=== PATIENT | male | born 1980 | race Caucasian/White ===

== ENCOUNTER 2023-05-29 12:07 | Emergency (ER) | payer SELFPAY ==
[2023-05-29 12:09] VITALS: BP 203/139; PULSE 120; RESP 18; TEMP 36.2; O2SAT 99; BMI 35.6
--- NOTE | 2023-05-29 13:10 | EX.ED.DYSGE1 ---
HPI <BANDAR Collins - Last Filed: 05/29/23 15:58> History of Present Illness Chief Complaint: Nosebleed Narrative Narrative: Patient is a 42-year-old male with history of hemophilia, hypertension who presents to the emergency department with a nosebleed that started this morning. Patient states he was outside working yesterday and might have been dry. He denies any injury to his nose. The most of the blood was into the right nares. Patient does has hemophilia, and he was concerned, he is here for evaluation. Patient did try TXA, factor VIII. Patient could not get his right side of his nose to stop bleeding. PFSH <BANDAR Collins - Last Filed: 05/29/23 15:58> [facility] Home Medications clindamycin HCl 300 mg capsule 300 mg PO TID #15 caps 05/29/23 [Rx Last Taken Unknown] Allergy/AdvReac Type Severity Reaction Status Date / Time Penicillins Allergy Anaphylaxis Verified 05/29/23 16:06 Social History Smoking Status: Never smoker ROS <BANDAR Collins - Last Filed: 05/29/23 15:58> ROS ED ROS Narrative Constitutional: Negative for fever, chills, weight loss, weakness Eyes: Negative for vision loss, vision change, double vision ENT: Negative for any sore throat, ear pain, congestion. Positive for epistaxis to the right nares Cardiovascular: Negative for any chest pain, tightness, palpitations Respiratory: Negative for any cough, sputum production, hemoptysis, dyspnea, dyspnea on exertion, orthopnea Gastrointestinal: Negative for any abdominal pain, nausea, vomiting, diarrhea, constipation, blood in stool, blood in vomit : Negative for any urinary frequency, dysuria, retention, blood in urine Muscle skeletal: Negative for any muscle joint pain, stiffness, myalgias, arthralgias, neck pain, back pain Neurological: Negative for any headache, syncope, numbness or tingling, dizziness Skin: Negative for any rashes, lumps, itching, abrasions, lacerations Psychiatric: Negative for any depression, anxiety, stress, suicidal ideation, homicidal ideation Hematologic: Negative for any easy bruising, excessive bruising, easy bleeding Allergies: Negative for any eczema, hives, rash EXAM <BANDAR Collins - Last Filed: 05/29/23 15:58> Physical Exam Narrative Exam Narrative: Vital signs reviewed. On initial examination, patient did have tampons to bilateral nares. The right one was saturated with blood. Patient was hypertensive on initial evaluation. HEET: Head normocephalic atraumatic, TMs clear bilaterally. Posterior pharynx is clear, moist mucous membranes. Nares clear bilaterally. I did have the patient blow the right nose, is difficult to see where the bleeding is occurred secondary to the amount of blood. Patient does have clots coming down his mouth as well as the left and right nares. Neck: Supple with no lymphadenopathy or tenderness. No signs of meningismus, negative jolt sign. Cardiac: Tachycardic rate no murmurs gallops or rubs, equal peripheral pulses bilaterally. Respiratory: Lungs clear to auscultation bilaterally. No chest tenderness. Abdomen: Soft, nontender, nondistended. No abdominal bruit or pulsatile masses. No hepatosplenomegaly Extremities: No peripheral edema, no signs of gross trauma or deformity. Active full range of motion of all extremities. Neuro: Cranial nerves II through XII intact, no focal neurological deficits. Skin: Clean dry and intact with no rash, purpura, petechiae, vesicles or pustules. Backs/flank: No CVA tenderness, no midline spinal tenderness, no deformity. Psych: Normal mood and affect. No SI, HI or acute psychosis. Const Vital Signs: 05/29/23 12:09 05/29/23 15:42 Temperature 97.1 F L Temperature Source Temporal Pulse Rate 120 H 101 H Respiratory Rate 18 17 Blood Pressure 203/139 H 180/110 H Blood Pressure Mean 160 133 Pulse Ox 99 96 Oxygen Delivery Method Room Air Room Air Positive well nourished and well developed General Appearance ED: well developed <Dr. Michele Alfredo DO - Last Filed: 05/29/23 16:16> Physical Exam Const Vital Signs: 05/29/23 12:09 05/29/23 15:42 Temperature 97.1 F L Temperature Source Temporal Pulse Rate 120 H 101 H Respiratory Rate 18 17 Blood Pressure 203/139 H 180/110 H Blood Pressure Mean 160 133 Pulse Ox 99 96 Oxygen Delivery Method Room Air Room Air MDM <PREETHI CollinsC - Last Filed: 05/29/23 15:58> MDM Lab Data Labs: Laboratory Results - last 24 hr 05/29/23 05/29/23 13:15 14:50 WBC 9.6 RBC 5.10 Hgb 13.6 Hct 41.5 MCV 81.4 MCH 26.7 L MCHC 32.8 RDW Std Deviation 43.3 RDW Coeff of Terra 14.6 Plt Count 380 MPV 10.0 Immature Gran % (Auto) 0.200 Neut % (Auto) 84.1 H Lymph % (Auto) 10.2 L Darke % (Auto) 5.1 Eos % (Auto) 0.1 Baso % (Auto) 0.3 Absolute Neuts (auto) 8.1 H Absolute Lymphs (auto) 0.98 Nucleated RBC % 0 PT 13.1 INR 1.0 Sodium 134 L Potassium 3.7 Chloride 100 Carbon Dioxide 30.0 Anion Gap 4 L BUN 15 Creatinine 1.09 Estim Creat Clear Calc 100.79 Est GFR (MDRD) Af Amer 95 Est GFR (MDRD) Non-Af 79 BUN/Creatinine Ratio 13.8 Glucose 118 H Calcium 8.8 Treatment and Re-Evaluation :: Patient appears anxious, patient does have epistaxis in the right nares. Secondary the patient's hemophilia, he is having difficulty stopping the bleeding. I had the patient blow his nose, I was trying to see where the bleeding was occurring however is difficult secondary to the amount of blood and clots. I then sprayed Afrin up the right nares. The Rhino Rocket was saturated in Afrin as well as water, was able to use a 7.5 Rhino Rocket, with 7 cc of air. This did stop the bleeding, patient did have a lot of clots leaving his mouth. Patient be reevaluated. On reassessment the patient had no more oozing out of the right nares. Patient does complain of some pressure to his face over this is to be expected site of the Rhino Rocket. Patient replaced on clindamycin. He will follow-up with ear nose and throat, I did do a PT/INR within normal limits. Patient's laboratory values were unremarkable with hemoglobin 13.5. Patient's blood pressure was elevated, I did speak with him about this, he states it secondary to being in the hospital. He is going to talk to his PCP about this. At this time, patient will be placed on clindamycin for 3 days, he will follow-up with ear nose and throat in the next 3 days. I did give him a syringe to decrease 1 cc tomorrow if he is still having pain. All questions were answered, patient stable for discharge <Dr. Michele Alfredo, DO - Last Filed: 05/29/23 16:16> [facility] Narrative Medical decision making narrative: I have personally performed a face to face assessment of the patient and have reviewed the AISHWARYA Note. I performed a substantive portion of the visit including all aspects of the following. My franco findings include: History: Patient presents with epistaxis that began today. Patient states it is mainly coming from his right nares. Patient has a history of hemophilia. Patient does not take any blood thinners as a result of that. Patient denies any trauma or injury. Patient states his bleeding began rather suddenly. Patient states that his bleeding is going down his throat. Exam: Vital signs are stable except for an elevated blood pressure of 203/139. Patient is tachycardic at 120. Patient is afebrile. Patient is in no acute distress. Oral mucosa is pink and moist. Oropharynx shows some bloody postnasal drainage. There is bleeding from the right nares. There is no septal deviation or septal hematoma noted. Neck is supple. Trachea is midline. There is no JVD or lymphadenopathy. Heart was regular rate and rhythm. Lungs are clear and equal bilaterally. Cranial nerves II through XII are intact. There are no focal motor or sensory deficits noted. Medical Decision Making: Potential diagnosis includes anemia, coagulopathy, electrolyte abnormality, and epistaxis. CBC will be obtained to assess for leukocytosis and anemia. PT with INR will be obtained to assess for coagulopathy. Basic metabolic profile will be obtained to assess for electrolyte abnormality and renal function. CBC was reviewed and was within normal limits. PT with INR was reviewed and was within normal limits. Basic metabolic profile was reviewed and was within normal limits. Afrin nasal spray was applied to the right nares. A 7.5 cm rapid Rhino was placed in the right nares. Patient tolerated the procedure well. There is no further bleeding noted. Patient was instructed to follow-up with ENT in 2 to 3 days for removal of the packing. Patient was given a prescription for clindamycin. Patient was given his first dose here. Patient was instructed to force in any way. Patient and spouse understood and were agreeable with the plan. All questions were answered. Lab Data Attestation: I reviewed the patient's lab results. Labs: Laboratory Results - last 24 hr 05/29/23 05/29/23 13:15 14:50 WBC 9.6 RBC 5.10 Hgb 13.6 Hct 41.5 MCV 81.4 MCH 26.7 L MCHC 32.8 RDW Std Deviation 43.3 RDW Coeff of Terra 14.6 Plt Count 380 MPV 10.0 Immature Gran % (Auto) 0.200 Neut % (Auto) 84.1 H Lymph % (Auto) 10.2 L Darke % (Auto) 5.1 Eos % (Auto) 0.1 Baso % (Auto) 0.3 Absolute Neuts (auto) 8.1 H Absolute Lymphs (auto) 0.98 Nucleated RBC % 0 PT 13.1 INR 1.0 Sodium 134 L Potassium 3.7 Chloride 100 Carbon Dioxide 30.0 Anion Gap 4 L BUN 15 Creatinine 1.09 Estim Creat Clear Calc 100.79 Est GFR (MDRD) Af Amer 95 Est GFR (MDRD) Non-Af 79 BUN/Creatinine Ratio 13.8 Glucose 118 H Calcium 8.8 Discharge Plan Triage Chief Complaint: Nosebleed ED Midlevel Provider: Marco Ferguson ED Provider: Michele Alfredo Dx/Rx/DC Orders Clinical Impression: Epistaxis, Hemophilia Instructions: ED Epistaxis (Adult) Prescriptions: New clindamycin HCl 300 mg capsule 300 mg PO TID Qty: 15 0RF Primary Care Provider: Care Physician,No Primary Referrals: Yahir Jennings MD [Med Staff - Active Staff] - NOT,DEFINED [Non-Staff] - Activity Restrictions/Additional Instructions: Information to tell the ENT. You have a 7.5 cm Rhino Rocket placed to your right nare. There is 7 mL of air. You are on clindamycin 300 mg 3 times a day. You have hemophilia and had a significant epistaxis. You also have some elevated high blood pressure. Disposition Disposition: Home, Self Care Discharge Date/Time: 05/29/23 16:11
[2023-05-29 13:19] LABS: Absolute Lymphocyte Count 0.98 X10^3/uL (0.83-4.51); Absolute Neutrophil Count 8.1 X10^3/uL (2.0-7.7); Basophil# 0.03 X10^3/uL; Basophil% 0.3 % (0-1); Eosinophil# 0.01 X10^3/uL; Eosinophils% 0.1 % (0-5); Hematocrit 41.5 % (40-54); Hemoglobin 13.6 g/dL (13.0-16.5); Lymphocyte # 0.98 X10^3/ul (0.83-4.51); Lymphocyte % 10.2 % (19-41); Mean Corp Hgb Conc 32.8 g/dL (32-36); Mean Corpuscular Hgb 26.7 pg (27.0-32.0); Mean Corpuscular Volume 81.4 fL (80-94); Monocyte# 0.49 X10^3/uL; Monocyte% 5.1 % (0-10); NRBC Flagged by Analyzer 0 % (0-5); Neutrophil # 8.05 X10^3/uL (2.7-7.7); Neutrophil % 84.1 % (47-70); Platelet Count 380 K/mm3 (150-450); RBC Distribution Width CV 14.6 % (11.6-14.6); RBC Distribution Width SD 43.3 fl (35.1-43.9); White Blood Count 9.6 K/mm3 (4.4-11.0)
[2023-05-29 13:32] LABS: Anion Gap 4 (5-15); BUN 15 mg/dL (7-18); BUN/Creat Ratio 13.8 RATIO (10-20); Calcium,Total 8.8 mg/dL (8.5-10.1); Chloride 100 mmol/L (98-107); Creatinine, Serum 1.09 mg/dL (0.70-1.30); EST Glomerular Filtration Rate 79 mL/min (>60); Est Glom Filt Rate - Afr Amer 95 mL/min (>60); Estimated Creatinine Clearance 100.79 ml/min; Glucose 118 mg/dL (74-106); Potassium 3.7 mmol/L (3.5-5.1); Sodium Level 134 mmol/L (136-145)
[2023-05-29] MEDS: Oxymetazoline 0.05% 1 SPRAY SPRAY.BTL 2 SPRAY NASAL (13:55)
[2023-05-29 15:24] LABS: Prothrombin Time (Protime)PT. 13.1 SECONDS (11.7-14.9)
[2023-05-29 15:42] VITALS: BP 180/110; PULSE 101; RESP 17; O2SAT 96
[2023-05-29] MEDS: Clindamycin HCl 150 MG Capsule 300 MG PO (16:05)
== END 2023-05-29 16:11 | disposition home or self-care (01) ==
PROVIDERS: Nurse Practitioner; Emergency Provider Emergency Medicine; Visit Provider Emergency Medicine
DX: R04.0 Epistaxis (principal); D66 Hereditary factor VIII deficiency
CPT/HCPCS: 30901; 80048; 85025; 85610; 99283